=== PATIENT | female | born 1965 | race Caucasian/White ===

== ENCOUNTER → 2016-09-25 | Outpatient (CLI) | payer OTHER | LOC: CAT 10:16 | DX: Z13.6 Encounter for screening for cardiovascular disorders (principal); E78.5 Hyperlipidemia, unspecified ==

== ENCOUNTER → 2019-06-20 | Outpatient (CLI) | payer OTHER | LOC: CAT 11:41 | DX: Z13.6 Encounter for screening for cardiovascular disorders (principal); E78.00 Pure hypercholesterolemia, unspecified; I25.10 Atherosclerotic heart disease of native coronary artery without angina pectoris ==

== ENCOUNTER → 2020-07-25 | Outpatient (CLI) | payer BC, OTHER | LOC: ULTRA 10:34 | PROVIDERS: ATTEND Nurse Practitioner | DX: R16.1 Splenomegaly, not elsewhere classified (principal) ==